=== PATIENT | male | born 1985 | race Caucasian/White ===

== ENCOUNTER 2019-04-01 12:24 | Emergency (ER) | payer SELFPAY ==
[2019-04-01 13:23] LABS: MONO NEGATIVE CONTROL ZONE White (Negative) (White); MONO POSITIVE CONTROL Pink Line (Positive) (PINK/RED); Mononucleosis NEGATIVE (NEGATIVE)
[2019-04-01] MEDS ORDERED: methylPREDNISolone Sod Succ/PF 125 MG/2 ML VIAL ONE (13:27)
[2019-04-01] MEDS ORDERED: Ketorolac Tromethamine 30 MG/ML VIAL ONE (13:27)
[2019-04-01] MEDS ORDERED: Ondansetron PF 4 MG/2 ML Vial ONE (13:27)
[2019-04-01 13:34] LABS: ALT (SGPT) 18 U/L (8-55); AST (SGOT) 15 U/L (5-34); Albumin 4.2 g/dL (3.5-5.0); Alkaline Phosphatase 61 U/L (40-150); Anion Gap 15 mmol/L (10-20); BUN (Urea Nitrogen) 10 mg/dL (8.9-20.6); Bilirubin, Total 2.1 mg/dL (0.2-1.2); Calc. Creatinine Clearance 0 mL/min (70-130); Calcium 9.4 mg/dL (7.8-10.44); Carbon Dioxide 21 mmol/L (22-29); Chloride 104 mmol/L (98-107); Estimated GFR-MDRD Greater than 90; Globulin 3.2 g/dL (2.4-3.5); Glucose 111 mg/dL (70-105); Lipase 98 U/L (8-78); Potassium 3.6 mmol/L (3.5-5.1); Protein, Total 7.4 g/dL (6.0-8.3); Sodium 136 mmol/L (136-145)
[2019-04-01 13:36] LABS: Hemoglobin 14.8 g/dL (14.0-18.0); Mean Corpuscular HGB CONC 33.9 g/dL (32.0-36.0); Mean Corpuscular Hemoglobin 29.1 pg (27.0-31.0); Mean Corpuscular Volume 85.9 fL (78.0-98.0); Platelet Count 164 thou/uL (130-400); RBC Distribution Width 11.1 % (11.5-14.5); Red Blood Cell (RBC) Count 5.09 mill/uL (4.70-6.10); White Blood Cell (WBC) Count 12.3 thou/uL (4.8-10.8)
[2019-04-01 13:53] LABS: Band 4 % (5-11); Lymphocytes 15 % (21-51); MDiff Complete? YES; Monocytes 6 % (0-10); Neutrophil 75 % (42-75); Platelet Morphology Comment Appears Adequate; RBC Morphology Normal
[2019-04-01] MEDS ORDERED: Dexamethasone 4 MG TAB ONE (14:32)
== END 2019-04-01 14:40 | disposition home or self-care (01) ==
LOC: BURERS 12:24
DX: J02.9 Acute pharyngitis, unspecified (principal); K85.90 Acute pancreatitis without necrosis or infection, unspecified; R11.2 Nausea with vomiting, unspecified; K21.9 Gastro-esophageal reflux disease without esophagitis
CPT/HCPCS: 36415; 80053; 83690; 85025; 86308; 96361; 96374; 96375; J1885; J2270; J2405; J2930; J8540

== ENCOUNTER 2021-10-29 20:29 | Emergency (ER) | payer SELFPAY ==
[2021-10-29] MEDS ORDERED: predniSONE 20 MG TAB ONE (21:07)
== END 2021-10-29 21:12 | disposition home or self-care (01) ==
LOC: BURERS 20:29
DX: L23.7 Allergic contact dermatitis due to plants, except food (principal); K21.9 Gastro-esophageal reflux disease without esophagitis
CPT/HCPCS: 99282; J7512

== ENCOUNTER 2022-06-05 19:32 | Emergency (ER) | payer SELFPAY ==
[2022-06-05] MEDS ORDERED: hydrOXYzine 25 MG TAB ONE (20:07)
[2022-06-05] MEDS ORDERED: Ketorolac Tromethamine 30 MG/ML VIAL ONE (20:07)
[2022-06-05] MEDS ORDERED: Cephalexin 250 MG CAP ONE (20:08)
[2022-06-05] MEDS ORDERED: Sulfameth/Trimethoprim DS 800-160mg TAB ONE (20:08)
== END 2022-06-05 20:19 | disposition home or self-care (01) ==
LOC: BURERS 19:32
DX: L73.9 Follicular disorder, unspecified (principal); L85.3 Xerosis cutis; K21.9 Gastro-esophageal reflux disease without esophagitis
CPT/HCPCS: 96372; 99283; J1885